=== PATIENT | female | born 1970 | race Caucasian/White ===

== ENCOUNTER 2021-11-26 18:44 | Inpatient (IN) | payer OTHER ==
[2021-11-26 18:59] VITALS: BMI 29.9
[2021-11-26] MEDS ORDERED: LACTATED RINGERS SOLUTION 1000 ML INFUS.BAG IV ONE (20:28)
[2021-11-26] MEDS ORDERED: morphine CARPU-JECT 2 MG/1 ML DISP.SYRIN IVPUSH ONE (20:28)
[2021-11-26] MEDS ORDERED: MAG HYDROX/AL HYDROX/SIMETH 30 ML UNIT-DOSE CUP PO ONE (20:28)
[2021-11-26] MEDS ORDERED: FAMOTIDINE 20 MG/50 ML IVPB 20 MG/50 ML MG IVPB ONE ×2 (20:44→21:00)
[2021-11-26] MEDS ORDERED: MAG HYDROX/AL HYDROX/SIMETH 30 ML UNIT-DOSE CUP ONE (20:59)
[2021-11-26 21:25] LABS: BASO % 0.5 % (0-2.0); EOS % 0.6 % (0-4.5); HEMATOCRIT 40.3 % (32.4-45.2); HEMOGLOBIN 12.8 GM/dL (10.7-15.3); LYMPH % 15.4 % (8-40); MCH 27.8 pg (25.7-33.7); MCHC 31.9 g/dl (32.0-36.0); MEAN CELL VOLUME 87.1 fl (80-96); MONO % 9.8 % (3.8-10.2); NEUT % 73.7 % (42.8-82.8); PLATELET COUNT 235 10^3/uL (134-434); RBC 4.62 M/mm3 (3.60-5.2); RDW 14.2 % (11.6-15.6); WHITE BLOOD COUNT 11.5 K/mm3 (4.0-10.0)
[2021-11-26 21:35] LABS: BLOOD UREA NITROGEN 16.4 mg/dL (7-18); CALCIUM 9.3 mg/dL (8.5-10.1)
[2021-11-26 21:39] LABS: CREATININE 0.9 mg/dL (0.55-1.3)
[2021-11-26 21:40] LABS: BILIRUBIN,TOTAL 0.3 mg/dL (0.2-1); TOT PROT 7.7 g/dl (6.4-8.2)
[2021-11-26] MEDS ORDERED: morphine CARPU-JECT 4 MG/1 ML DISP.SYRIN IVPUSH ONE (22:25)
[2021-11-26] MEDS ORDERED: morphine SULFATE 4 MG/ML VIAL ONE (22:28)
[2021-11-27] MEDS ORDERED: ONDANSETRON 4 MG/2 ML VIAL IVPUSH ONE (00:04)
[2021-11-27] MEDS ORDERED: TAMSULOSIN HCL 0.4 MG CAP PO ONE (00:05)
[2021-11-27] MEDS ORDERED: SODIUM CHLORIDE 0.9% 500 ML INFUS.BAG IV ONE (00:06)
[2021-11-27] MEDS ORDERED: KETOROLAC TROMETHAMINE 30 MG/1 ML VIAL IVPUSH ONE (00:06)
[2021-11-27] MEDS ORDERED: TAMSULOSIN HCL 0.4 MG CAP ONE (00:09)
[2021-11-27] MEDS ORDERED: ONDANSETRON 4 MG/2 ML VIAL ONE (00:10)
[2021-11-27] MEDS ORDERED: KETOROLAC TROMETHAMINE 30 MG/1 ML VIAL ONE (00:10)
[2021-11-27 00:25] LABS: INR 1.14 (0.83-1.09); PROTHROMBIN TIME (PATIENT) 13.1 SEC (9.7-13.0)
[2021-11-27 00:28] LABS: ACTIVATED PTT 24.7 SECONDS (25.2-36.5); EPI CELLS 17 /uL (0-25.1); HYALINE CASTS 0 /uL (0-3.1); URINE APPEARANCE CLEAR; URINE BACTERIA 158 /uL (0-1359); URINE BILIRUBIN NEGATIVE (NEGATIVE); URINE COLOR YELLOW; URINE GLUCOSE (UA) NEGATIVE (NEGATIVE); URINE KETONE TRACE (NEGATIVE); URINE LEUK ESTERASE NEGATIVE (NEGATIVE); URINE NITRITE NEGATIVE (NEGATIVE); URINE PROTEIN NEGATIVE (NEGATIVE); URINE RBC 257 /uL (0-23.9); URINE UROBILINOGEN 0.2 mg/dL (0.2-1.0); URINE WBC 19 /uL (0-25.8)
[2021-11-27] MEDS ORDERED: LACTATED RINGERS SOLUTION 1,000 ML/1,000 ML INFUS.BAG IV SCH (02:45)
[2021-11-27] MEDS ORDERED: ACETAMINOPHEN 1000 MG/100 ML BAG IVPB PRN (03:41)
[2021-11-27] MEDS ORDERED: TRIMETHOBENZAMIDE HCL 200MG/2ML INJ IM PRN (03:42)
[2021-11-27] MEDS ORDERED: MELATONIN 5 MG TABLETS PO PRN (03:43)
[2021-11-27 06:49] LABS: BASO % 0.5 % (0-2.0); EOS % 0.1 % (0-4.5); HEMATOCRIT 36.7 % (32.4-45.2); HEMOGLOBIN 12.1 GM/dL (10.7-15.3); LYMPH % 16.3 % (8-40); MCH 28.9 pg (25.7-33.7); MCHC 33.1 g/dl (32.0-36.0); MEAN CELL VOLUME 87.6 fl (80-96); MEAN PLT VOLUME 10.3 fl (7.5-11.1); MONO % 7.1 % (3.8-10.2); PLATELET COUNT 124 10^3/uL (134-434); RBC 4.19 M/mm3 (3.60-5.2); RDW 14.2 % (11.6-15.6); WHITE BLOOD COUNT 8.9 K/mm3 (4.0-10.0)
[2021-11-27 07:10] LABS: ALBUMIN 3.5 g/dl (3.4-5.0); BLOOD UREA NITROGEN 8.5 mg/dL (7-18)
[2021-11-27 07:12] LABS: URIC ACID 3.2 mg/dL (2.6-7.2)
[2021-11-27 07:14] LABS: BILIRUBIN,TOTAL 0.3 mg/dL (0.2-1); CREATININE 0.5 mg/dL (0.55-1.3); PHOSPHOROUS 3.6 mg/dL (2.5-4.9); TOT PROT 6.9 g/dl (6.4-8.2)
[2021-11-27 09:42] LABS: PLATELET ESTIMATE DECREASED
[2021-11-27] MEDS ORDERED: CEFTRIAXONE 1 GM in DEXTROSE 5%-WATER - 50 ML IVPB ONE (09:55)
[2021-11-27] MEDS: TAMSULOSIN HCL 0.4 MG CAP PO SCH (09:57)
[2021-11-27] MEDS ORDERED: KETOROLAC TROMETHAMINE 15 MG/ML VIAL IVPUSH ONE (11:12)
[2021-11-27] MEDS ORDERED: KETOROLAC TROMETHAMINE 30 MG/1 ML VIAL IVPUSH PRN (11:37)
[2021-11-27] MEDS: LACTATED RINGERS SOLUTION 1,000 ML/1,000 ML INFUS.BAG IV SCH (12:21)
[2021-11-28 10:30] LABS: BASO % 0.4 % (0-2.0); EOS % 1.9 % (0-4.5); HEMATOCRIT 38.1 % (32.4-45.2); LYMPH % 32.1 % (8-40); MCH 27.6 pg (25.7-33.7); MCHC 31.5 g/dl (32.0-36.0); MEAN CELL VOLUME 87.7 fl (80-96); MEAN PLT VOLUME 9.9 fl (7.5-11.1); NEUT % 56.6 % (42.8-82.8); PLATELET COUNT 206 10^3/uL (134-434); RBC 4.35 M/mm3 (3.60-5.2); RDW 14.3 % (11.6-15.6); WHITE BLOOD COUNT 6.5 K/mm3 (4.0-10.0)
[2021-11-28 10:40] LABS: ALBUMIN 3.2 g/dl (3.4-5.0); BLOOD UREA NITROGEN 4.6 mg/dL (7-18); CALCIUM 8.9 mg/dL (8.5-10.1); MAGNESIUM 1.9 mg/dL (1.8-2.4)
[2021-11-28 10:43] LABS: CREATININE 0.7 mg/dL (0.55-1.3)
[2021-11-28 10:45] LABS: BILIRUBIN,TOTAL 0.3 mg/dL (0.2-1); TOT PROT 6.4 g/dl (6.4-8.2)
[2021-11-28] MEDS: CEFTRIAXONE 1 GM in DEXTROSE 5%-WATER - 50 ML IVPB SCH (11:44)
[2021-11-28] MEDS: LACTATED RINGERS SOLUTION 1,000 ML/1,000 ML INFUS.BAG IV SCH ×2 (11:44→16:57)
[2021-11-28] MEDS: TAMSULOSIN HCL 0.4 MG CAP PO SCH (11:44)
[2021-11-29 08:21] LABS: BASO % 0.6 % (0-2.0); EOS % 3.3 % (0-4.5); HEMATOCRIT 37.9 % (32.4-45.2); HEMOGLOBIN 12.5 GM/dL (10.7-15.3); LYMPH % 38.9 % (8-40); MCH 28.7 pg (25.7-33.7); MEAN CELL VOLUME 86.9 fl (80-96); MEAN PLT VOLUME 9.3 fl (7.5-11.1); MONO % 11.6 % (3.8-10.2); NEUT % 45.6 % (42.8-82.8); PLATELET COUNT 199 10^3/uL (134-434); RBC 4.36 M/mm3 (3.60-5.2); RDW 14.2 % (11.6-15.6); WHITE BLOOD COUNT 5.7 K/mm3 (4.0-10.0)
[2021-11-29 08:48] LABS: ALBUMIN 3.5 g/dl (3.4-5.0); BILIRUBIN,TOTAL 0.4 mg/dL (0.2-1); BLOOD UREA NITROGEN 5.1 mg/dL (7-18); CALCIUM 9.3 mg/dL (8.5-10.1); CREATININE 0.7 mg/dL (0.55-1.3); MAGNESIUM 1.8 mg/dL (1.8-2.4); PHOSPHOROUS 4.2 mg/dL (2.5-4.9); TOT PROT 6.7 g/dl (6.4-8.2)
[2021-11-29] MEDS: TAMSULOSIN HCL 0.4 MG CAP PO SCH (09:36)
[2021-11-29] MEDS: CEFTRIAXONE 1 GM in DEXTROSE 5%-WATER - 50 ML IVPB SCH (09:36)
[2021-11-29] MEDS: LACTATED RINGERS SOLUTION 1,000 ML/1,000 ML INFUS.BAG IV SCH (20:45)
[2021-11-30 09:04] LABS: HEMATOCRIT 39.6 % (32.4-45.2); HEMOGLOBIN 12.9 GM/dL (10.7-15.3); MCH 28.8 pg (25.7-33.7); MCHC 32.5 g/dl (32.0-36.0); MEAN CELL VOLUME 88.6 fl (80-96); MEAN PLT VOLUME 9.7 fl (7.5-11.1); PLATELET COUNT 203 10^3/uL (134-434); RBC 4.47 M/mm3 (3.60-5.2); RDW 14.3 % (11.6-15.6); WHITE BLOOD COUNT 6.7 K/mm3 (4.0-10.0)
[2021-11-30 09:31] LABS: CALCIUM 9.4 mg/dL (8.5-10.1)
[2021-11-30 09:33] LABS: ALBUMIN 3.5 g/dl (3.4-5.0)
[2021-11-30 09:36] LABS: CREATININE 0.7 mg/dL (0.55-1.3)
[2021-11-30 09:37] LABS: BILIRUBIN,TOTAL 0.4 mg/dL (0.2-1)
[2021-11-30] MEDS: TAMSULOSIN HCL 0.4 MG CAP PO SCH (10:56)
[2021-11-30] MEDS: CEFTRIAXONE 1 GM in DEXTROSE 5%-WATER - 50 ML IVPB SCH (10:57)
[2021-11-30] MEDS ORDERED: LACTATED RINGERS SOLUTION 1,000 ML IV SCH (12:45)
[2021-11-30] MEDS ORDERED: PROPOFOL 20 ML ONE (13:01)
[2021-11-30] MEDS ORDERED: MIDAZOLAM HCL 2 MG/2 ML SINGLE DOSE VIAL ONE (13:03)
[2021-11-30] MEDS ORDERED: DEXAMETHASONE SOD PHOSPHATE 4 MG/1 ML VIAL ONE (13:58)
[2021-11-30] MEDS ORDERED: ONDANSETRON 4 MG/2 ML VIAL ONE (13:58)
[2021-11-30] MEDS ORDERED: MELATONIN 5 MG TABLETS PO PRN (14:56)
[2021-11-30] MEDS ORDERED: TRIMETHOBENZAMIDE HCL 200MG/2ML INJ IM PRN (14:56)
[2021-11-30] MEDS ORDERED: ACETAMINOPHEN INJECTION 100 ML IVPB ONE (15:02)
[2021-11-30] MEDS: LACTATED RINGERS SOLUTION 1,000 ML IV SCH (17:50)
[2021-11-30] MEDS: KETOROLAC TROMETHAMINE 30 MG/1 ML VIAL IVPUSH PRN (17:54)
[2021-11-30] MEDS: LACTATED RINGERS SOLUTION 1,000 ML/1,000 ML INFUS.BAG IV SCH (18:48)
[2021-11-30] MEDS ORDERED: HYDROmorphone HCl 2 MG/ML VIAL IVPB ONE (20:15)
[2021-11-30] MEDS ORDERED: SOLIFENACIN SUCCINATE 5 MG TAB PO ONE (20:15)
[2021-12-01] MEDS: LACTATED RINGERS SOLUTION 1,000 ML IV SCH ×3 (04:13→15:00)
[2021-12-01] MEDS: KETOROLAC TROMETHAMINE 30 MG/1 ML VIAL IVPUSH PRN (04:31)
[2021-12-01] MEDS: TAMSULOSIN HCL 0.4 MG CAP PO SCH (10:11)
[2021-12-01] MEDS: SOLIFENACIN SUCCINATE 5 MG TAB PO SCH (10:11)
[2021-12-01] MEDS: CEFTRIAXONE 1 GM in DEXTROSE 5%-WATER - 50 ML IVPB SCH (10:12)
[2021-12-01 10:24] LABS: HEMOGLOBIN 11.7 GM/dL (10.7-15.3); MCH 27.6 pg (25.7-33.7); MCHC 31.8 g/dl (32.0-36.0); MEAN CELL VOLUME 86.8 fl (80-96); MEAN PLT VOLUME 10.2 fl (7.5-11.1); PLATELET COUNT 213 10^3/uL (134-434); RBC 4.26 M/mm3 (3.60-5.2); RDW 13.9 % (11.6-15.6); WHITE BLOOD COUNT 11.5 K/mm3 (4.0-10.0)
[2021-12-01 10:45] LABS: CALCIUM 8.8 mg/dL (8.5-10.1)
[2021-12-01 10:47] LABS: BLOOD UREA NITROGEN 9.7 mg/dL (7-18); CREATININE 0.7 mg/dL (0.55-1.3)
[2021-12-01 10:49] LABS: ALBUMIN 3.2 g/dl (3.4-5.0); BILIRUBIN,TOTAL 0.2 mg/dL (0.2-1); TOT PROT 6.5 g/dl (6.4-8.2)
[2021-12-01] MEDS: PHENAZOPYRIDINE HCL 100 MG TABLET (FP) PO SCH ×2 (13:34→18:01)
[2021-12-01] MEDS: traMADol HCL 50 MG TABLET PO PRN (17:20)
[2021-12-02] MEDS: traMADol HCL 50 MG TABLET PO PRN (02:19)
[2021-12-02] MEDS: CEFTRIAXONE 1 GM in DEXTROSE 5%-WATER - 50 ML IVPB SCH (09:25)
[2021-12-02] MEDS: TAMSULOSIN HCL 0.4 MG CAP PO SCH (09:25)
[2021-12-02] MEDS: PHENAZOPYRIDINE HCL 100 MG TABLET (FP) PO SCH ×2 (09:27→13:15)
[2021-12-02] MEDS: SOLIFENACIN SUCCINATE 5 MG TAB PO SCH (09:27)
[2021-12-02 09:34] LABS: HEMOGLOBIN 11.4 GM/dL (10.7-15.3); MCH 27.7 pg (25.7-33.7); MCHC 31.7 g/dl (32.0-36.0); MEAN CELL VOLUME 87.2 fl (80-96); PLATELET COUNT 197 10^3/uL (134-434); RBC 4.13 M/mm3 (3.60-5.2); RDW 14.1 % (11.6-15.6); WHITE BLOOD COUNT 14.1 K/mm3 (4.0-10.0)
[2021-12-02 09:55] LABS: ALBUMIN 3.1 g/dl (3.4-5.0); BLOOD UREA NITROGEN 5.9 mg/dL (7-18); CALCIUM 8.5 mg/dL (8.5-10.1)
[2021-12-02 09:58] LABS: CREATININE 0.8 mg/dL (0.55-1.3)
[2021-12-02 10:01] LABS: BILIRUBIN,TOTAL 0.5 mg/dL (0.2-1); TOT PROT 6.4 g/dl (6.4-8.2)
[2021-12-02 11:22] VITALS: RESP 20
[2021-12-02 14:36] VITALS: BP 124/78; PULSE 83; TEMP 98.7
[2021-12-06 19:13] LABS: CA OXALATE MONOHYDR. 20 % (.); SIZE 5x3 mm (.); WEIGHT 27 mg (.)
== END 2021-12-02 14:36 | disposition home or self-care (01) | DRG 443 ==
LOC: JER 18:44 → UNDOADMOB 11-27 00:59 → JERBED 11-27 00:59 → JASUSAT 11-27 02:37 → SUATTDRO 11-27 02:37 → JERBED 11-27 06:09 → J8W 11-27 06:09 → JASUSAT 11-28 17:07 → J8W 11-28 17:21 → JASUSAT 11-28 17:22 → J8W 11-29 16:18
PROVIDERS: ADMIT Internal Medicine; ATTEND Internal Medicine
PROC: BT1DZZZ Fluoroscopy of Right Kidney, Ureter and Bladder (ICD-10-PCS; 2021-11-30)
PROC: 0TH98YZ Insertion of Other Device into Ureter, Via Natural or Artificial Opening Endoscopic (ICD-10-PCS; principal; 2021-11-30 13:00)
PROC: 0TC68ZZ Extirpation of Matter from Right Ureter, Via Natural or Artificial Opening Endoscopic (ICD-10-PCS; 2021-11-30 13:00)
PROC: 0TF68ZZ Fragmentation in Right Ureter, Via Natural or Artificial Opening Endoscopic (ICD-10-PCS; 2021-11-30 13:00)
PROC: 0T768DZ Dilation of Right Ureter with Intraluminal Device, Via Natural or Artificial Opening Endoscopic (ICD-10-PCS; 2021-11-30 13:00)
DX: N13.1 Hydronephrosis with ureteral stricture, not elsewhere classified (principal); E87.6 Hypokalemia; D72.829 Elevated white blood cell count, unspecified; K82.4 Cholesterolosis of gallbladder; R10.11 Right upper quadrant pain
CPT/HCPCS: 0241U-QW; 36415; 74177-TC; 76000-TC-FY; 76705-TC; 76775-TC; 76856-TC; 80053; 81003; 82360; 83605; 83690; 83735; 84100; 84484; 84550; 85025; 85027; 85610; 85730; 87086; 88300-TC; 93005; 93010; 94010; 94760; 99285-25; C2617; Q9967